=== PATIENT | male | born 1965 | race Caucasian/White ===

== ENCOUNTER 2020-01-03 16:48 | Outpatient (CLI) | payer BC, SELFPAY ==
--- NOTE | ~2020-01-03 | XR_ITS ---
EXAMINATION: XR shoulder LT min 2V DATE: 01/03/2020 17:42 INDICATION: Left shoulder pain with repetitive motion. TECHNIQUE: AP internally and externally rotated, AP oblique externally rotated and axillary views of the left shoulder were obtained. COMPARISON: None FINDINGS: Normal alignment. No fracture.Mild glenohumeral osteoarthritis with mild nonuniform joint space narr owing. Acromioclavicular joint is normal. Soft tissues are unremarkable. Visualized portions of the l ungs are clear. IMPRESSION: Mild left glenohumeral osteoarthritis. Reviewed, dictated and finalized at location A.
--- NOTE | ~2020-01-03 | XR_ITS ---
EXAMINATION: XR lumbar spine 6V w bending DATE: 01/03/2020 17:42 INDICATION: TECHNIQUE: Anteroposterior, lateral in neutral, flexion and extension, and bilateral oblique views of the lumbar spine, anteroposterior view of the sacrum and cone-down lateral view of the lumbosacral j unction were obtained. COMPARISON: None. FINDINGS: Alignment is normal with normal motion on flexion and extension. Vertebral body heights are normal. D isc heights are normal with small anterior endplate osteophytes at L1-L2 through L4-L5. No pars inter articularis defects. Mild facet osteoarthritis on the bilaterally at L3-L4 through L5-S1 and on the r ight at T12-L1. Sacral arches are intact. No fractures identified. Mild bilateral sacroiliac osteoart hritis. IMPRESSION: 1. 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 Reviewed, dictated and finalized at location A. IMPRESSION: 1. Mild polyarticular osteoarthritis at the lumbar facet joints and bilateral s acroiliac joints.
== END 2020-01-03 16:49 | disposition home or self-care (01) ==
LOC: ANHIMG 16:51
PROVIDERS: PCP Internal Medicine; Visit Provider Physician Assistant
DX: M51.36 Other intervertebral disc degeneration, lumbar region (principal); M19.012 Primary osteoarthritis, left shoulder
CPT/HCPCS: 72114; 73030

== ENCOUNTER 2020-07-23 09:01 | Outpatient (CLI) | payer BC, SELFPAY ==
--- NOTE | ~2020-07-23 | US_ITS ---
US abdomen complete EXAMINATION: US Abdomen Complete INDICATION: Abdomen pain PROCEDURE: Realtime High Resolution abdomen ultrasound. COMPARISON: No prior studies for comparison FINDINGS: Gallbladder contains sludge. There is mild gallbladder wall thickening measuring 4 mm. No d efinite gallstones. Common bile duct measures 4 mm. Liver echotexture within normal limits without focal mass. Pancreas within normal limits. Pancreati c tail is obscured by bowel gas. Spleen is enlarged measuring 13.1 cm. Renal echotexture is within n ormal limits bilaterally without hydronephrosis, contour deforming mass or renal stone. Right kidney measures 11 cm. Left kidney measures 11.4 cm. There is a left renal cyst measuring 5.9 cm. Visualized aspects of the aorta and IVC are within normal limits. Portal vein is patent. No sonograph ic Luke's sign indicated by the technologist. IMPRESSION: 1: Gallbladder sludge with gallbladder wall thickening. Consider acalculous cholecystitis in the appr opriate clinical setting. 2: Hepatic steatosis. 3: Splenomegaly. Reviewed, dictated and finalized at location A. [employer] ENGINE OPTIMIZATION STRATEGIST IMPRESSION: 1: Gallbladder sludge with gallbladder wall thickening. Consider acalculous cho lecystitis in the appropriate clinical setting. 2: Hepatic steatosis. 3: Splenomegaly.
== END 2020-07-23 09:02 | disposition home or self-care (01) ==
PROVIDERS: PCP Internal Medicine; Visit Provider Physician Assistant
DX: R10.84 Generalized abdominal pain (principal); R16.1 Splenomegaly, not elsewhere classified; K76.0 Fatty (change of) liver, not elsewhere classified
CPT/HCPCS: 76700

== ENCOUNTER → 2021-10-03 07:47 | Outpatient (CLI) | payer OTHER, SELFPAY ==
--- NOTE | ~2021-10-03 | US_ITS ---
EXAMINATION: US abdomen limited DATE: 10/03/2021 08:23 INDICATION: Other specified diseases of the gallbladder. Right upper quadrant abdominal pain. TECHNIQUE: Multiple grayscale and Doppler ultrasound images of the abdomen were obtained. COMPARISON: Ultrasound abdomen 07/23/2020 FINDINGS: The visualized portions of the head, body, and tail of the pancreas are normal. There is di ffuse hepatic steatosis. There is a 1.3 cm cyst in the liver. There is normal flow in main portal vei n. The gallbladder is distended and contains sludge. No gallstones or gallbladder wall thickening. Th ere is no sonographic Luke sign. IMPRESSION: 1. Gallbladder sludge. Gallbladder distention may be secondary to fasting. 2. Diffuse hepatic steatosis. Reviewed, dictated and finalized at location A.
== END ==
PROVIDERS: PCP Internal Medicine; Visit Provider Surgery
DX: K82.8 Other specified diseases of gallbladder (principal); K76.0 Fatty (change of) liver, not elsewhere classified
CPT/HCPCS: 76705

== ENCOUNTER 2022-09-16 07:45 | Outpatient (CLI) | payer OTHER, SELFPAY ==
--- NOTE | ~2022-09-16 | US_ITS ---
Abdominal Sonogram: Real-time sonographic imaging of the abdomen was performed. Clinical History: Fatty liver Findings: The liver appears normal with no evidence of solid mass lesion or bile duct dilatation. 1. 7 cm simple hepatic cyst noted. Main portal vein demonstrates normal direction of flow. The spleen is normal in size without evidence of focal lesion. The gallbladder is distended, with probable small amount of gallbladder sludge. No definite stone or wall thickening seen. The common bile duct measure s 5 mm. The visualized pancreas, aorta, and IVC are unremarkable. The right kidney measures 12.0 cm in length and the left kidney measures 11.6 cm. There is no hydronephrosis or renal calculus. 6.8 c m left renal cyst present. Impression: Distended gallbladder with small amount of gallbladder sludge. Hepatic and renal cysts, as noted above. Reviewed, dictated and finalized at [facility]. TING MACHINE OPERATOR Impression: Distended gallbladder with small amount of gallbladder sludge. Hepatic and renal cysts, as noted above.
== END 2022-09-16 07:46 | disposition home or self-care (01) ==
LOC: ANHIMG 07:49
PROVIDERS: PCP Internal Medicine; Visit Provider Internal Medicine
DX: K76.0 Fatty (change of) liver, not elsewhere classified (principal); N28.1 Cyst of kidney, acquired; K76.89 Other specified diseases of liver
CPT/HCPCS: 76700